=== PATIENT | female | born 1980 | race Caucasian/White ===

== ENCOUNTER 2018-04-02 20:29 | Emergency (ER) | payer MEDICAID ==
[2018-04-02 20:49] VITALS: BP 142/98
--- NOTE | 2018-04-02 22:06 | EDM.PDOC ---
ED HPI GENERAL MEDICAL PROBLEM - General Chief Complaint: Abdominal Pain Stated Complaint: LOWER BACK AND ABDOMINAL PAIN Time Seen by Provider: 04/02/18 21:00 Source of Information: Reports: Patient History Limitations: Reports: No Limitations - History of Present Illness INITIAL COMMENTS - FREE TEXT/NARRATIVE: 37-year-old female, usually healthy who developed some low back discomfort earlier this afternoon which has now radiated around to the front and the abdomen and cause diffuse pain. She is uncomfortable, but has no nausea or vomiting, denies pleuritic pain, and has no urinary symptoms other than some dysuria 2 days ago. She is now fairly uncomfortable, the pain is persistent and throbbing. She did feel some peritoneal irritation while riding in to the emergency room in the car. Onset: Sudden (Pain started fairly suddenly 8 hours ago) Location: Reports: Abdomen, Back Severity: Moderate Worsens with: Reports: Movement Associated Symptoms: Reports: Malaise. Denies: Chest Pain, Fever/Chills, Headaches, Nausea/Vomiting, Shortness of Breath Lopwer abdomen Pain Score (Numeric/FACES): 8 - Related Data Allergies Allergy/AdvReac Type Severity Reaction Status Date / Time No Known Allergies Allergy Verified 04/02/18 20:49 Home Meds: Home Meds Dextroamphetamine/Amphetamine [Dextroamp-Amphetamin 10 mg Tab] 1 tab PO BID [History] buPROPion HCl [Wellbutrin Xl] 300 mg PO DAILY 04/02/18 [History] traZODone HCl [Trazodone HCl] 50 mg PO Q6HR PRN 04/02/18 [History] Past Medical History - Past Health History Medical/Surgical History: Denies Medical/Surgical History [employer] History: Reports: Psychiatric History: Reports: ADHD, Anxiety, Depression - Infectious Disease History Infectious Disease History: Reports: Chicken Pox Social & Family History - Tobacco Use Smoking Status *Q: Never Smoker Second Hand Smoke Exposure: No - Caffeine Use Caffeine Use: Reports: Coffee - Alcohol Use Days Per Week of Alcohol Use: 0 - Recreational Drug Use Recreational Drug Use: No ED ROS GENERAL - Review of Systems Review Of Systems: See Below Constitutional: Denies: Fever, Chills, Malaise HEENT: Reports: No Symptoms Respiratory: Denies: Shortness of Breath Cardiovascular: Denies: Chest Pain GI/Abdominal: Reports: Abdominal Pain. Denies: Diarrhea, Nausea, Vomiting : Reports: Dysuria (Had a few episodes of dysuria 2 days ago) Skin: Reports: No Symptoms Neurological: Reports: No Symptoms ED EXAM, GI/ABD - Physical Exam Exam: See Below Exam Limited By: No Limitations General Appearance: Alert, Mild Distress (Patient looks fairly uncomfortable) Eyes: Bilateral: Normal Appearance (No jaundice) Respiratory/Chest: No Respiratory Distress, Lungs Clear Cardiovascular: Regular Rate, Rhythm GI/Abdominal Exam: Soft, Tender (Fairly tender palpation across the entire abdomen, particularly the left lower and left lateral area) Neurological: Alert, Oriented Course - Vital Signs Last Recorded V/S: Last Vital Signs Temp 99.6 F 04/02/18 20:48 Pulse 83 04/02/18 20:48 Resp 16 04/02/18 20:48 BP 142/98 H 04/02/18 20:48 Pulse Ox 96 04/02/18 20:48 - Orders/Labs/Meds Orders: Active Orders 24 hr Category Date Time Status Abdomen Pelvis wo Cont [CT] Stat Exams 04/02/18 22:16 Taken CULTURE URINE [RM] Stat Lab 04/02/18 22:30 Received UA W/MICROSCOPIC [URIN] Urgent Lab 04/02/18 21:26 Ordered Labs: Laboratory Tests 04/02/18 04/02/18 04/02/18 Range/Units 21:26 21:28 21:28 WBC 16.5 H (4.5-11.0) K/uL RBC 4.39 (3.30-5.50) M/uL Hgb 13.8 (12.0-15.0) g/dL Hct 39.9 (36.0-48.0) % MCV 91 (80-98) fL MCH 31 (27-31) pg MCHC 35 (32-36) % Plt Count 318 (150-400) K/uL Neut % (Auto) 73 H (36-66) % Lymph % (Auto) 16 L (24-44) % [place] % (Auto) 7 H (2-6) % Eos % (Auto) 3 (2-4) % Baso % (Auto) 1 (0-1) % Sodium 137 L (140-148) mmol/L Potassium 3.5 L (3.6-5.2) mmol/L Chloride 99 L (100-108) mmol/L Carbon Dioxide 28 (21-32) mmol/L Anion Gap 13.5 (5.0-14.0) mmol/L BUN 16 (7-18) mg/dL Creatinine 0.8 D (0.6-1.0) mg/dL Est Cr Clr Drug Dosing 72.65 mL/min Estimated GFR (MDRD) > 60 (>60) Glucose 103 (74-106) mg/dL Calcium 9.0 (8.5-10.1) mg/dL Total Bilirubin 0.5 (0.2-1.0) mg/dL AST 22 (15-37) U/L ALT 33 (12-78) U/L Alkaline Phosphatase 64 (46-116) U/L Total Protein 7.7 (6.4-8.2) g/dL Albumin 4.2 (3.4-5.0) g/dL Globulin 3.5 (2.3-3.5) g/dL Albumin/Globulin Ratio 1.2 (1.2-2.2) Amylase 29 D (25-115) U/L Lipase 68 L (73-393) U/L Urine Color Yellow Urine Appearance Cloudy Urine pH 6.5 (4.5-8.0) Ur Specific [place] 1.010 (1.008-1.030) Urine Protein 100 H (NEGATIVE) mg/dL Urine Glucose (UA) Normal (NEGATIVE) mg/dL Urine Ketones Negative (NEGATIVE) mg/dL Urine Occult Blood Large (NEGATIVE) Urine Nitrite Negative (NEGATIVE) Urine Bilirubin Negative (NEGATIVE) Urine Urobilinogen Normal (NORMAL) mg/dL Ur Leukocyte Esterase Large (NEGATIVE) Urine RBC 30-40 H (0-5) Urine WBC 40-50 H (0-5) Ur Epithelial Cells Moderate Amorphous Sediment Not seen Urine Bacteria Few Urine Mucus Few Meds: Medications Discontinued Medications Generic Name Dose Route Start Last Admin Trade Name Freq PRN Reason Stop Dose Admin Ketorolac Tromethamine 60 mg 04/02/18 23:20 04/02/18 23:29 Toradol IM 04/02/18 23:21 60 mg ONETIME ONE Administration - Re-Assessments/Exams Free Text/Narrative Re-Assessment/Exam: 04/02/18 22:05 A UA was obtained, along with a CBC, CMP, amylase and lipase. UA revealed white cells and red cells but very few bacteria. White count was 16,500. 04/02/18 23:22 CT scan was obtained without contrast of the abdomen and pelvis. It showed some stranding around the proximal right ureter which may indicate a recently passed stone but no acute obstruction, no evidence of pyelonephritis. No other abnormality. Patient was given a shot of Toradol, 60 mg and started on Cipro 500 mg twice daily for 5 days pending a urine culture. Also given 6 hydrocodone for extra pain control. She will return in 2-3 days if not improving satisfactorily. Departure - Departure Time of Disposition: 23:45 Disposition: Home, Self-Care 01 Condition: Good Clinical Impression: UTI (urinary tract infection) Qualifiers: Urinary tract infection type: site unspecified Hematuria presence: with hematuria Qualified Code(s): N39.0 - Urinary tract infection, site not specified - Discharge Information Instructions: Urinary Tract Infection, Adult Referrals: PCP,None [Primary Care Provider] - Forms: ED Department Discharge Care Plan Goals: Take the antibiotic as directed twice daily for at least 5 days. Use stronger pain medication over the next 12-24 hours if needed. Drink lots of water, increase activity as tolerated and recheck in 2-3 days if not improving satisfactorily or return anytime if worsening despite treatment. - My Orders Last 24 Hours: My Active Orders 04/02/18 21:26 UA W/MICROSCOPIC [URIN] Urgent 04/02/18 22:16 Abdomen Pelvis wo Cont [CT] Stat 04/02/18 22:30 CULTURE URINE [RM] Stat - Assessment/Plan Last 24 Hours: My Active Orders 04/02/18 21:26 UA W/MICROSCOPIC [URIN] Urgent 04/02/18 22:16 Abdomen Pelvis wo Cont [CT] Stat 04/02/18 22:30 CULTURE URINE [RM] Stat
[2018-04-02] MEDS ORDERED: Ketorolac 60 MG/2 ML SDV IM ONE (23:20)
== END 2018-04-02 23:44 | disposition home or self-care (01) ==
LOC: JP.ED 20:29
DX: N39.0 Urinary tract infection, site not specified (principal); F90.9 Attention-deficit hyperactivity disorder, unspecified type
CPT/HCPCS: 36415; 74176; 80053; 81001; 82150; 83690; 85025; 87086; 96372; 99284; J1885; 87088; 87186

== ENCOUNTER 2020-03-02 05:46 | Day surgery (SDC) | payer MEDICAID ==
[2020-03-02] MEDS ORDERED: Dextrose 5%-Lactated Ringers 1,000 ML IV SCH (06:30)
[2020-03-02] MEDS ORDERED: Glycopyrrolate 0.2 MG/ML 2 ML SDV IVPUSH ONE (06:30)
[2020-03-02] MEDS ORDERED: fentaNYL 100 MCG/2 ML SDV ONE (07:06)
[2020-03-02] MEDS ORDERED: Midazolam 1 MG/ML 2 ML SDV ONE (07:07)
[2020-03-02] MEDS ORDERED: Propofol 200 MG/20 ML SDV ONE (07:07)
[2020-03-02] MEDS ORDERED: Pantoprazole 40 MG Vial IVPUSH ONE (07:25)
[2020-03-02 08:50] VITALS: BP 114/72; PULSE 73
--- NOTE | 2020-03-04 14:49 | OR ---
DATE OF PROCEDURE: 03/02/2020 SURGEON: Eliezer Dorsey MD PREOPERATIVE DIAGNOSIS: History of nausea, bloating, and weight loss. POSTOPERATIVE DIAGNOSES: 1. History of nausea, bloating, and weight loss. 2. Erosive antral gastritis. OPERATIVE PROCEDURE: Esophagogastroduodenoscopy with antral biopsies for CLOtest. ANESTHESIA: IV sedation. INDICATION FOR PROCEDURE: This is a 39-year-old female presenting with history of nausea and postprandial bloating and some weight loss. She is presently not on any antisecretory medications. Plan is to proceed with an upper GI endoscopy with biopsies as indicated. Potential risks including bleeding and perforation were discussed, and the patient wishes to proceed. DETAILS OF PROCEDURE: The patient was taken to the operating room and placed in a left lateral decubitus position. IV sedation was administered after which the upper GI endoscope was passed orally through the length of the esophagus into the stomach with retroflexion view the fundus and thereafter through the pyloric channel and into the junction of the third and fourth portions of the duodenum. Findings included normal hypopharynx, larynx, upper esophageal sphincter, and esophageal body. No significant hiatal hernia was noted. Within the stomach, there was fairly prominent erosive gastritis with multiple small erosions throughout the antrum. These were covered with, in some cases, tiny bits of old blood and, in other cases, fibrinous exudate. There were no true ulcers present. The pyloric channel and the visualized portions of the duodenum were unremarkable. At this point, biopsies were obtained from the antrum and sent for CLOtest for H. pylori. No bleeding from the biopsy sites was seen, and the procedure was then concluded. The patient will be given Protonix 40 mg IV in the recovery room and then be started on 40 mg Protonix daily. If the CLOtest is positive, she will be contacted and started on a course of antibiotics. Otherwise, she will be following up with Marielena Reynoso PA-C, at [facility] in 2 to 3 weeks. Eliezer Dorsey MD /[id number]
== END 2020-03-02 09:07 | disposition home or self-care (01) ==
LOC: JP.SDS 05:46
PROVIDERS: ATTEND Surgery
DX: K29.70 Gastritis, unspecified, without bleeding (principal); E66.9 Obesity, unspecified; Z88.8 Allergy status to other drugs, medicaments and biological substances; Z68.28 Body mass index [BMI] 28.0-28.9, adult
CPT/HCPCS: 43239; 81025; 87081; C9113; J2250; J2704; J3010; J3490; J7121